=== PATIENT | female | born 1995 | race Caucasian/White ===

== ENCOUNTER 2016-11-25 11:15 | Day surgery (SDC) | payer OTHER ==
--- NOTE | 2016-11-23 15:58 | HP ---
DATE OF : 1995 HISTORY OF PRESENT ILLNESS: The patient is a 20 year-old female, right upper abdominal pain for the past 6 months, worse recently, associated with some nausea and vomiting. No change in bowel movements, no jaundice, no prior surgical intervention. She had an ultrasound that showed cholelithiasis. Her amylases have been normal. Lipase has been within normal limits. White count was 7.7 recently. HCG was negative on 10/16/2016. LFT's were within normal limits. Ultrasound showed tiny gallstones, consistent with cholelithiasis. REVIEW OF SYSTEMS: Ten systems reviewed per admission assessment, denies any chronic illnesses. No chest pains or palpitations. Other systems negative or noncontributory as noted above per pre-admission questionnaire. MEDICATIONS: Tylenol #3 p.r.n. PAST SURGICAL HISTORY: None. FAMILY HISTORY: Negative in regards to this problem. ALLERGIES: Strawberries. SOCIAL HISTORY: No smoking or alcohol abuse. PHYSICAL EXAMINATION: GENERAL: No acute distress. HEENT: Sclerae nonicteric. NECK: No JVD. CHEST: Equal excursions. Nonlabored breathing. CARDIOVASCULAR: Regular rate and rhythm. ABDOMEN: Soft. She had history of some upper abdominal tenderness, no peritoneal signs currently. EXTREMITIES: No significant edema. NEUROLOGICAL: Alert, moving extremities grossly symmetrically. No gross motor deficits noted. IMPRESSION: Symptomatic cholelithiasis rule out chronic cholecystitis. It was felt the patient would benefit from cholecystectomy. The risks and benefits explained in detail, not limited to bleeding, infection, risk of trocar injury or hernia. Small risk of bowel, bladder or blood vessel injury, small risk of bile leak, bile duct injury, retained stone or sludge possibly requiring further procedure, either open or ERCP. General risk of anesthesia, DVT, PE, pneumonia, perioperative aches, pains, bloating, constipation, and/or loose stools possibly chronic in nature, possibly requiring other procedures or studies, or referrals or endoscopy. She understands, agrees to the plan of procedure. We will proceed with lap choli, possible open as an outpatient.
[~2016-11-25 11:15] MED LIST: BRIDION 200MG/2ML IV ONE; DIPRIVAN 200 MG/20 ML IV ONE; Decadron 4 MG INJ IV ONE; Lactated Ringers 1,000 ML IV ONE; Quelicin Fliptop 200 MG/10 ML IJ ONE; SUBLIMAZE 100 MCG/2 ML IV ONE; Sensorcaine 0.25% 10 ML ONE; Versed 2 MG/2 ML Injection IV ONE; Zemuron 100 MG/10 ML IJ ONE; Zofran 4 MG/2 ML VIAL IV ONE
[2016-11-25] MEDS ORDERED: BICITRA 30 ML CUP PO ONE (11:25)
[2016-11-25] MEDS ORDERED: Pepcid 20 MG VIAL IV ONE (11:25)
[2016-11-25] MEDS ORDERED: Lactated Ringers 1,000 ML IV SCH (11:30)
[2016-11-25 11:44] VITALS: O2SAT 98
[2016-11-25] MEDS ORDERED: MEFOXIN 2 GM PREMIX** 50 ML IV SCH (12:00)
[2016-11-25] MEDS ORDERED: OFIRMEV 100 ML IV ONE (15:21)
[2016-11-25] MEDS ORDERED: DILAUDID 2 MG INJECTION ONE (15:56)
[2016-11-25] MEDS ORDERED: SUBLIMAZE 100 MCG/2 ML ONE (15:56)
[2016-11-25 17:15] VITALS: BP 150/79; PULSE 71
--- NOTE | 2016-11-26 07:41 | OP ---
SURGERY DATE/TIME: 11/25/2016 1455 PREOPERATIVE DIAGNOSIS: Symptomatic cholelithiasis, chronic cholecystitis, obesity. POSTOPERATIVE DIAGNOSIS: Symptomatic cholelithiasis, chronic cholecystitis, obesity. PROCEDURE: Laparoscopic cholecystectomy. SURGEON: Dr. Darren Jones. ANESTHESIA: General. ESTIMATED BLOOD LOSS: Minimal. INDICATIONS: As noted above. Risks and benefits explained in detail but not limited to and consent obtained. DESCRIPTION OF PROCEDURE AND FINDINGS: The patient was taken to the OR. General anesthesia was induced. Abdomen prepped and draped in the usual sterile fashion. After official time out and no disagreement with planned procedure, a transverse incision made at supraumbilical area. Fascia grasped and pulled upward. Veress needle inserted and tested with saline. Pneumoperitoneum accomplished insufflating opening pressure of 0-15. An 11 mm bladeless port and camera were inserted all the way to the hilt given her obesity this was not easy but was able to reach the peritoneal cavity. There was no evidence of any intra-abdominal injury secondary to trocar insertion. Two - 5 mm right upper quadrant ports and an 11 mm epigastric port were placed. Gallbladder is grasped and retracted over the edge of the liver and away from Calot's triangle. Dissection carried posterior, lateral to anterior fashion. Slowly and carefully cystic duct and infundibular junction slowly and carefully well skeletonized until a critical view was obtained both anteriorly and posteriorly. Once this was accomplished cystic duct and cystic artery clipped x3 and divided in the usual fashion. Gallbladder slowly and carefully dissected free from its dense almost concrete attachments to the liver bed clipping additional oozing side branches off the cystic artery as necessary directly on the gallbladder wall. This took some time but was slowly and carefully accomplished. Just prior to releasing from final attachments to the anterior edge of the liver the liver bed re-inspected. Clips noted to be in place in cystic duct and cystic artery stumps. There were no signs of any active bleeding or bile leakage. Given her obesity the Pleatman sac was placed and the gallbladder was placed in the Pleatman sac and pulled up. However because of her girth the grasper came off of the gallbladder and tip spilled some small amount of bile at the cystic duct stump. There was no evidence of any gross stone spillage this was irrigated out as well as possible. At this time the gallbladder was able to fit in the Pleatman sac a little better and this time was pulled up, pulled free and passed off. The port is replaced. Copious amount of irrigation accomplished lateral to the liver and subhepatic space irrigating until clear. The liver bed re-inspected. Clips noted to be in place in cystic duct and cystic artery stumps. There were no signs of any active bleeding or bile leakage. It was felt that there was no benefit from drain placement. There had been a small amount of bile that had spilled from the gallbladder site of the infundibular cystic duct stump. Clips noted to be in place cystic duct and cystic artery stumps. There were no signs of any active bleeding at this point. Copious amount of irrigation irrigating until clear. Fascial defect 10/11 ports in the epigastrium and umbilical area closed under direct vision with the camera with puncture closure device under direct vision with the camera with #1 Vicryl. Pneumoperitoneum decompressed. The wound was irrigated out. Skin incision closed with 4-0 Vicryl. Steri-Strips and sterile dressing applied. 0.25% Marcaine local injected along the skin incision fascial defect. The patient tolerated the procedure well. There were no immediate complications. Findings discussed with the family out in the waiting area. She was transferred to the recovery room in stable condition post-extubation.
== END 2016-11-25 17:18 | disposition home or self-care (01) ==
LOC: SDC 11:15 → EDBD 11:15 → SDC 17:18
PROVIDERS: ATTEND Surgery
PROC: 0FT44ZZ Resection of Gallbladder, Percutaneous Endoscopic Approach (ICD-10-PCS; principal; 2016-11-25)
DX: K80.10 Calculus of gallbladder with chronic cholecystitis without obstruction (principal); E66.9 Obesity, unspecified
CPT/HCPCS: 00790; 36415; 84703; J0330; J0694; J1100; J1170; J2250; J2405; J2704; J3010